=== PATIENT | female | born 1965 | race Caucasian/White ===

== ENCOUNTER → 2024-11-29 | Outpatient (CLI) | payer BC ==
--- NOTE | 2024-12-11 14:46 | MM ---
Reason for Exam: Screening (asymptomatic). Last screening mammogram was performed 12 month(s) ago. Patient History: Menarche at age 17. First Full-Term at age 29. Hysterectomy at age 57. Postmenopausal. Currently using Estrogen, starting at age 54. Paternal aunt had breast cancer, age 60. Risk Values: Rika 5 year model risk: 1.3%. NCI Lifetime model risk: 8.0%. Prior Study Comparison: 11/22/2022 Bilateral Screening Mammogram, [facility]. 11/28/2023 Bilateral Screening Mammogram, [facility]. Tissue Density: The breasts are heterogeneously dense, which may obscure small masses. Findings: Analyzed By CAD. Right breast: There is no suspicious group of microcalcifications or new suspicious mass. Left breast: There is no suspicious group of microcalcifications or new suspicious mass. Overall Assessment: Negative, BI-RAD 1 Management: Screening Mammogram of both breasts in [address] [facility] will attempt to contact patient to return for supplemental views and ultrasound if indicated. Patient should continue monthly self-breast exams. A clinical breast exam by your physician is recommended on an annual basis. This exam should not preclude additional follow-up of suspicious palpable abnormalities. Note on Rika scores and lifetime risk: 1. A Rika score greater than 3% is considered moderate risk. If this is the case, consider specialist referral to assess eligibility for a risk reducing agent. 2. If overall lifetime risk for the development of breast cancer is 20% or higher, the patient may qualify for future screening with alternating mammogram and breast MRI. [facility], , 12/11/2024 2:42 PM. Electronically signed and approved by: Bhavik Varghese DO
== END | disposition home or self-care (01) ==
LOC: RADMAMWWP 06:57
PROVIDERS: ATTEND Obstetrics & Gynecology
DX: Z12.31 Encounter for screening mammogram for malignant neoplasm of breast (principal); R92.333 Mammographic heterogeneous density, bilateral breasts; Z78.0 Asymptomatic menopausal state; Z80.3 Family history of malignant neoplasm of breast
CPT/HCPCS: 77063; 77067

== ENCOUNTER → 2025-02-20 | Outpatient (CLI) | payer BC ==
--- NOTE | 2025-02-20 13:09 | XR ---
EXAMINATION TYPE: XR chest 2V DATE OF EXAM: 02/20/2025 CLINICAL INDICATION: Female, 59 years old with history of R06.2 WHEEZING, TECHNIQUE: Frontal and lateral views of the chest are obtained. COMPARISON: None FINDINGS: There is no focal air space opacity, pleural effusion, or pneumothorax seen. The cardiac silhouette size is within normal limits. The osseous structures are intact. IMPRESSION: No acute cardiopulmonary process. [facility], , 02/20/2025 1:07 PM
[2025-02-20 15:35] LABS: Chol/HDL Ratio 2.61 Ratio; LDL Cholesterol,Calculated 113.1 mg/dL (0.0-131.0); VLDL Calculation 11.36 mg/dL (5.00-40.00)
== END | disposition home or self-care (01) ==
LOC: LABWHC1 12:16
PROVIDERS: ATTEND Family Medicine
DX: Z00.00 Encounter for general adult medical examination without abnormal findings (principal); R06.2 Wheezing
CPT/HCPCS: 36415; 71046; 80061; 83036